=== PATIENT | female | born 1965 | race Caucasian/White ===

== ENCOUNTER 2024-05-11 10:06 | Emergency (ER) | payer OTHER, SELFPAY ==
[2024-05-11 10:20] VITALS: BP 136/76
--- NOTE | 2024-05-11 11:30 | ED.GENMED ---
History of Present Illness
General
Chief Complaint: DVT/Possible Blood Clot
Source: patient
Time Seen by Provider: 05/11/24 10:31
History of Present Illness
History of Present Illness:
58-year-old female with past medical history of hypertension hyperlipidemia status post total ankle replacement and tendon/gastrocnemius repair presenting to the emergency department for evaluation of worsening pain in the proximal gastrocnemius
with patient being concern for possible DVT. Patient reports the surgeries stemming from a defect surgical repair that she had when she was 13 years old and had been having worsening time ambulating. Surgery was done at [facility].
Patient has follow-up visit scheduled with her surgeon tomorrow. She does have prescription for oxycodone at home which she has been taking. Patient's biggest concern was possibility of DVT. She is on Lovenox since her surgery.
Past History
Past History
ED Past Medical History: HTN and Hypercholesterolemia
ED Past Surgical History: , Gynecological, Orthopedic and Tonsilectomy
Social History
Tobacco: Non-smoker
Alcohol: None
Drug: None
Personal:
Living: with family
Review of Systems
Review of Systems
All Other Systems: ROS reviewed and negative except as documented in HPI and ROS
Phy Exam
Physical Exam
Physical Exam:
GENERAL: Alert , in no apparent distress
EYE: conjunctiva clear
Head: Normocephalic atraumatic
NECK: Supple,
ENT: mmm.
LUNGS: no acute respiratory distress
NEUROLOGICAL: Alert and oriented
SKIN: Warm and dry, skin intact.
MUSCULOSKELETAL: RLE: Posterior short leg splint in place with large dressing underneath were removed. Patient has 4 surgical incisions with sutures in place with no evidence for dehiscence or drainage. There are 2 small skin tears 1 on the
anterior ankle and then 1 on the distal portion of the dorsum of the foot without any surrounding cellulitic changes. No weeping. No bleeding. Patient has palpable pedal pulse. Cap refill less than 2 seconds. Sensation grossly intact to light
touch. Patient's most sensitivity in the posterior gastrocnemius
PSYCH: Normal and appropriate interaction.
Scores
Heart Failure Risk
Heart Failure Risk Score: Not Applicable
Heart Score for Chest Pain Patients
STEMI patient?: Not applicable
Withdrawal Assessment of Alcohol
Withdrawal Assessment Completed?: Not applicable
Course
Orders/Labs/Results
Orders:
Orders
05/11/24 10:28
US Legs, Right [US Periph Venous LOWER Ext RT] Urgent
Comment:
Reason For Exam: rule out DVT s/p surgery
Vital Signs
Initial and Last Documented VS:
Initial Vital Signs
Temp Pulse Resp BP Pulse Ox
97.9 F 90 18 136/76 94
05/11/24 10:20 05/11/24 10:20 05/11/24 10:20 05/11/24 10:20 05/11/24 10:20
Last Documented Vital Signs
Temp Pulse Resp BP Pulse Ox
97.9 F 90 18 136/76 94
05/11/24 10:20 05/11/24 10:20 05/11/24 10:20 05/11/24 10:20 05/11/24 10:20
Procedures
Splinting/Sling Placement
Right Lower Leg:
Procedure completed by: Hiwot
Pre-splint extermity exam: neurovascular intact
Type of splint: posterior short leg
Splint material: other (4 inch Ortho-Glass)
Splint checked by provider?: Yes
Normal distal neurovascular exam?: Yes
MDM/Problems Addressed
Differential Diagnosis Includes:
Postoperative pain, no sign of infection, I have minimal concern for DVT given patient is on Lovenox and taking this as directed since her surgery, patient has palpable pulses making arterial occlusion unlikely as well.
MDM/Problems Addressed:
58-year-old female presenting to the emergency department for evaluation of right leg pain following recent surgery. Patient most concerned for DVT. Will order an ultrasound for further evaluation. Overall I suspect this is most likely
postoperative pain. Patient is already coagulated on Lovenox. No current signs of action.
*Radiology
Radiology exam reviewed: radiology read reviewed
*Pulse Oximetry
Patient hypoxic: no
*Critical Care Note
Total Time (30-74mins, 75-104mins- exclusive of procedures): Not Applicable
Patient Management
Escalation/DeEscalation of care consider admission/obs:
Patient's ultrasound negative for DVT. We had to remove patient's initial splint and a new one was placed. Nonadherent pads were placed over the incision sites as well as the skin tears. Patient is stable for discharge and follow-up with her
surgeon as scheduled tomorrow.
ED Attending Note
-
Portions of this chart may have been created with voice recognition software.� Occasional wrong word or��sound alike� substitutions may have occurred due to the inherent limitations of voice recognition software.
Discharge Plan
Departure
Patient Disposition: Home (Routine Discharge)
Date of Disposition: 05/11/24
Time of Disposition: 11:30
Patient with high blood pressure during this ER visit?: No
Discharge Problem:
Post-operative pain
Instructions: Managing pain after surgery
Interventions
Interventions:
*General Assessment Last Done: 05/11/24 12:09
*Neglect/Abuse Screening Last Done: 05/11/24 12:09
*Nursing Disposition Last Done: 05/11/24 12:09
ED-Skin Assessment Last Done: 05/11/24 10:52
Discharge Date and Time
Discharge Date/Time: 05/11/24 12:10
Print Language: SRI LANKAN
== END 2024-05-11 12:10 | disposition home or self-care (01) ==
LOC: EMR 10:06
PROVIDERS: EMERGENCY PHYSICIAN Emergency Medicine; FAMILY PHYSICIAN Internal Medicine
DX: G89.18 Other acute postprocedural pain (principal); M79.604 Pain in right leg; I10 Essential (primary) hypertension; E78.00 Pure hypercholesterolemia, unspecified; Z79.01 Long term (current) use of anticoagulants; Z96.661 Presence of right artificial ankle joint; Z98.890 Other specified postprocedural states
CPT/HCPCS: 99284; 29515; 93971

== ENCOUNTER 2024-05-30 23:38 | Emergency (ER) | payer OTHER, SELFPAY ==
[2024-05-30 23:40] VITALS: BP 116/50
[2024-05-31] MEDS: PERCOCET 5/325 1 TABLET PO (02:20)
--- NOTE | 2024-05-31 06:18 | ED.GENMED ---
History of Present Illness
General
Chief Complaint: Fall
Source: patient
Exam Limitations: none
Time Seen by Provider: 05/31/24 01:53
Nursing documentation reviewed up to this point in time: agreed with
History of Present Illness
History of Present Illness:
58-year-old female with a past medical history of hypertension, hyperlipidemia who is 2 and half weeks removed from right ankle surgery presents to the emergency room for evaluation of right shoulder pain after a fall. Patient reports that she has
been using a knee scooter to get around. She says that she was adjusting the scooter and lost her balance and fell and landed on her right shoulder. She says she has some pain in her lateral right shoulder since and came to the ER for evaluation.
She did not hit her head or lose consciousness. She does have some mild pain in the right side of her neck but denies any other complaints since the fall. She says that she is due for her home dose of Percocet which she is taking for pain
management after her surgery on the right leg and is requesting a dose here. She has been on prophylactic Lovenox but says she missed the dose for the past 2 days.
Past History
Past History
ED Past Medical History: HTN and Hypercholesterolemia
ED Past Surgical History: , Gynecological, Orthopedic and Tonsilectomy
Social History
Tobacco: Non-smoker
Alcohol: None
Drug: None
Personal:
Living: with family
Review of Systems
Review of Systems
All Other Systems: ROS reviewed and negative except as documented in HPI and ROS
Respiratory: Denies trouble breathing
Cardiac: Denies chest pain
ABD/GI: Denies abdominal pain, nausea or vomiting
: Denies flank pain
Musculoskeletal: Reports joint pain and neck pain; Denies back pain
Neurological: Denies dizzy or headache
Phy Exam
Physical Exam
Physical Exam:
General: Awake, alert, oriented x3; nontoxic
Head: Normocephalic, atraumatic
Eyes: Conjunctiva normal, pupils equal round and reactive to light bilaterally
Throat: Airway intact, handling secretions
Neck: Trachea midline, mild right paraspinal tenderness, no midline tenderness, full range of motion
Back: No signs of trauma to the back or flank
Lungs: Breathing comfortably, no distress; no evidence of accessory muscle use; no cyanosis
Heart: Regular rate
Abd: Soft, non distended, nontender
Neuro: Cranial nerves grossly intact, speech fluid; motor and sensory motion intact right upper extremity radial, median, ulnar nerve distributions
Skin: no rash
Extremities: Right lower extremity in large splint; left lower extremity no edema, no tenderness or signs of acute trauma; on exam of right shoulder she has tenderness around the AC joint as well as along the deltoid; no tenderness along the
clavicle or posteriorly along the scapula, no tenderness of the humerus, elbow, wrist; she does have pain with internal rotation of the right shoulder and with extremes of flexion, no pain with external rotation, abduction; left upper extremity
atraumatic; good pulses in all extremities�specifically strong right radial pulse with brisk capillary refill distally
Scores
Heart Failure Risk
Heart Failure Risk Score: Not Applicable
Heart Score for Chest Pain Patients
STEMI patient?: Not applicable
Withdrawal Assessment of Alcohol
Withdrawal Assessment Completed?: Not applicable
Course
Orders/Labs/Results
Orders:
Orders
05/31/24 02:10
CR Cervical Spine 2 or 3 Vw Urgent
Comment:
Reason For Exam: neck pain s/p fall
CR Shoulder - Right Min 2 View Urgent
Comment:
Reason For Exam: right shoulder pain
05/31/24 02:11
Oxycodone/Acetaminophen [Percocet 5/325] 1 tablet PO NOW STA
05/31/24 04:14
Sling Right-Treatment ONCE
05/31/24 04:20
Case Management Consult ONCE
Case Management Consult: VN/Home Care
Comment: Patient recovering from leg injury; feels she needs either visiting nurse or possibly inpatient
rehab. Cell # is [phone]
Vital Signs
Initial and Last Documented VS:
Initial Vital Signs
Temp Pulse Resp BP Pulse Ox
37.5 C 76 24 116/50 99
05/30/24 23:40 05/30/24 23:40 05/30/24 23:40 05/30/24 23:40 05/30/24 23:40
Last Documented Vital Signs
Temp Pulse Resp BP Pulse Ox
36.8 C 76 24 116/50 99
05/31/24 03:31 05/30/24 23:40 05/30/24 23:40 05/30/24 23:40 05/30/24 23:40
MDM/Problems Addressed
Differential Diagnosis Includes:
Shoulder pain: AC separation, shoulder sprain, bursitis, fracture, dislocation
Neck pain: Neck sprain, fracture, muscle strain
MDM/Problems Addressed:
58-year-old female presents after mechanical fall as described above. Complains of right shoulder pain primarily also mild right-sided neck pain. Vitals normal. Exam as above. Sent for x-ray of the right shoulder as well as of the cervical
spine�x-rays reviewed by me no acute pathology. Suspect likely mild shoulder sprain and muscular neck strain. Stable for discharge. I did reach out to case management to help arrange for visiting nurse for patient as she feels that she has been
having some trouble with ADLs with mobility limited postoperatively.
*Radiology
Radiology exam reviewed: preliminary read by ED provider
*Pulse Oximetry
Patient hypoxic: no
*Critical Care Note
Total Time (30-74mins, 75-104mins- exclusive of procedures): Not Applicable
Data Reviewed
Source: patient
ED Attending Note
-
Portions of this chart may have been created with voice recognition software.� Occasional wrong word or��sound alike� substitutions may have occurred due to the inherent limitations of voice recognition software.
Discharge Plan
Departure
Patient Disposition: Home (Routine Discharge)
Date of Disposition: 05/31/24
Time of Disposition: 04:13
Patient with high blood pressure during this ER visit?: No
Discharge Problem:
Injury of shoulder, right, Neck strain
Instructions: Muscle Strain (DC), Shoulder Pain ED
Referrals:
Sabina Valerio MD [Family Provider] - Follow up in 2-3 days
Activity Restrictions/Additional Instructions:
Thank you for visiting the Emergency Department at [facility].
1. Please schedule a follow up appointment as directed. Call first thing tomorrow morning to make an appointment.
2. If indicated, please take your medications as instructed and indicated on discharge paperwork.
3. If any of your symptoms do not improve, or persist, or become more severe within 6-12 hours, please return to the emergency department for further care.
4. Please return to the emergency department if you develop a headache, neck pain/stiffness, fever greater than 100.4F, chest pain, shortness of breath, persistent nausea, vomiting, slurred speech, difficulty walking, numbness/tingling, weakness,
signs of infection or any other symptoms that are worrisome to you.
Please call [phone] if you have any questions.
Interventions
Interventions:
*Risk Screen - Suicide Last Done: 05/30/24 23:40
*General Assessment Last Done: 05/31/24 02:30
*Neglect/Abuse Screening Last Done: 05/30/24 23:40
ED- Fall Risk Assessment Last Done: 05/31/24 02:30
*ED COVID-19 Vaccine History Last Done: 05/31/24 05:08
*Nursing Disposition Last Done: 05/31/24 05:08
ED-Musculoskeletal Assessment Last Done: 05/31/24 02:30
ED- Neurological Assessment Last Done: 05/31/24 02:30
ED-Skin Assessment Last Done: 05/31/24 02:30
Discharge Date and Time
Discharge Date/Time: 05/31/24 05:08
Print Language: KOSOVAN
--- NOTE | 2024-05-31 09:34 | CM ---
Per director of case management request, pt was discharged from ED overnight and VN services recommended.
CM spoke to the pt and she admitted she has a visit to ED this night, had 3 surgeries recently and she confirmed she will need RN visit to change bandages and wound care.
A list of VN vendors discussed with the pt, pt expressed no preference. Pt referred to [facility], TTed [facility] liaison and asked to call the pt WINTER to schedule a visit.
Pt provided this phone number to call if any issues with VN services.
--- NOTE | 2024-05-31 09:55 | VNURNOTE ---
Received message that VN ordered for patient. Called patient, no answer, left message. Referral placed in [facility].
--- NOTE | 2024-06-01 12:00 | CM ---
CM received call from patient's sister who was requesting information on private pay caregivers. CM emailed list to patient's sister.
== END 2024-05-31 05:08 | disposition home or self-care (01) ==
LOC: EMR 23:38
PROVIDERS: EMERGENCY PHYSICIAN Emergency Medicine; FAMILY PHYSICIAN Internal Medicine
DX: S49.91XA Unspecified injury of right shoulder and upper arm, initial encounter (principal); S16.1XXA Strain of muscle, fascia and tendon at neck level, initial encounter; W19.XXXA Unspecified fall, initial encounter; I10 Essential (primary) hypertension; E78.00 Pure hypercholesterolemia, unspecified; Z98.890 Other specified postprocedural states; Z86.16 Personal history of COVID-19
CPT/HCPCS: 99284; 72040; 73030

== ENCOUNTER → 2024-09-01 12:16 | Outpatient (REF) | payer OTHER, SELFPAY | LOC: WOUND 12:16 | PROVIDERS: ATTENDING PHYSICIAN Surgery; FAMILY PHYSICIAN Internal Medicine | DX: T81.31XA Disruption of external operation (surgical) wound, not elsewhere classified, initial encounter (principal); Y83.8 Other surgical procedures as the cause of abnormal reaction of the patient, or of later complication, without mention of misadventure at the time of the procedure; L97.319 Non-pressure chronic ulcer of right ankle with unspecified severity | CPT/HCPCS: 97597; 99203 ==